=== PATIENT | male | born 1995 | race Two or more races ===

== ENCOUNTER 2022-08-29 10:23 | Emergency (ER) | payer SELFPAY ==
[2022-08-29 10:32] VITALS: BP 131/90; PULSE 67; RESP 18; TEMP 36.7; O2SAT 100; BMI 33.6
[2022-08-29 10:45] VITALS: BP 131/90; PULSE 67; RESP 18; TEMP 36.7; O2SAT 100; BMI 33.7
--- NOTE | 2022-08-29 10:47 | EXP.UTC ---
Discharge Plan Disposition Patient Disposition: Home, Self-Care Condition: Good Prescriptions Prescriptions: New amoxicillin-pot clavulanate 875-125 mg Tablet 1 tab PO Q12H 7 Days Qty: 14 0RF Referrals Follow up/Referrals: Provider,Referral, [Primary Care Provider] - See instructions Activity Restrictions/Add. Instructions Additional Instructions/Restrictions: Suture instructions: ?You have required stitches today. Please read the following instructions so you know how to care for them: ?1. Keep wound area dry for the first 24 hours. 2?? May clean gently with mild soap and water, after 48 hours to prevent crusting over suture knots. 3. You may shower if your provider gives permission but do not take a bath until the skin is healed.. 4. Never leave a wet dressing or Band-Aid on your stitches as this allows bacteria to reach the area and may cause infection. Band-aids can cause the wound to sweat and not recommended to wear for long periods of time Watch for signs of infection: ? Increasing redness, tenderness or warmth around the suture site ? Unusual swelling around the site ? Appearance of pus around each suture or any red streaks ? Fever If you develop any of the above signs or symptoms of infection, Follow up with Family Physician immediately 5. Suture removal in __7-10__days 6. Return to [facility] or follow up with family doctor for removal. This can be done by any medical provider dur?ing regular hours on Monday through Monday, by appointment. Clinical Impressions Clinical Impression: Hand laceration Qualifiers: Encounter type: initial encounter Foreign body presence: unspecified Laterality: right Qualified Code(s): S61.411A - Laceration without foreign body of right hand, initial encounter Instructions Patient Instructions: DI for Laceration Repair, DI for Laceration Repair -- Simple Print Language Print Language: Nepali Discharge ED Provider: Princess Odonnell [facility] [place] General Stated complaint: AO 08/29 RT hand lesion Mode of Arrival: Ambulatory Source of Information: Patient Limitations: No Limitations Time Seen by Provider: 08/29/22 10:47 Description of Symptoms (Recalled from Triage Doc. by RN): c/o right hand laceration after accidently cutting it with a razor blade, pt is able to move and feel t/o hand and wrist History of Present Illness Provider Complaint: Used content publisher to communicate with patient Patient able to speak and understand limited welsh Patient states that he cut his hand on a blade he had in his pocket has laceration to palm of hand Denies numbness or loss of feeling able to move fingers and bend hand Related Data Previous Rx's Medication Instructions Recorded amoxicillin 875 mg-potassium 1 tab PO Q12H 7 days #14 tabs 08/29/22 clavulanate 125 mg tablet Allergies Allergy/AdvReac Type Severity Reaction Status Date / Time No Known Allergies Allergy Verified 08/29/22 10:58 [facility] Disclaimer: The information contained in this section may have been updated after the patient was seen, as this information can be updated by other users. Social History Smoking Status: Unknown if ever smoked alcohol intake: never current occupational status: employed Travel in the last 8 weeks: None ROS Obtained: Yes All systems reviewed & no additional complaints except as documented and Yes Systems reviewed as appropriate & no additional complaints except as documented ENT Ears, Nose, Mouth, and Throat: Reports system reviewed and no additional complaints, except as documented and Reports as per HPI Cardiovascular Cardiovascular: Reports system reviewed and no additional complaints, except as documented and Reports as per HPI Respiratory Respiratory: Reports system reviewed and no additional complaints, except as documented and Reports as per HPI Gastrointestinal Gastrointestingal: Reports system reviewed and no additional complaints, except as documented and as per HPI Muscul
[2022-08-29 11:22] VITALS: BP 131/90; PULSE 67; RESP 18; TEMP 36.7; O2SAT 100
== END 2022-08-29 11:25 | disposition home or self-care (01) ==
PROVIDERS: Emergency Provider Nurse Practitioner
DX: S61.411A Laceration without foreign body of right hand, initial encounter (principal); W26.0XXA Contact with knife, initial encounter
CPT/HCPCS: 12001; 90471; 90715; 96372; 99204; 99213; G0463